=== PATIENT | male | born 1935 | race African-American/Black ===

== ENCOUNTER 2021-09-05 10:57 | Inpatient (IN) ==
[2021-09-05 11:38] LABS: Arterial Base Excess iSTAT -8 MMOL/L (-2.5-2.5); Arterial Bicarbonate iSTAT 19.1 MMOL/L (20-26); Arterial O2 Saturation iSTAT 88 % (95-100); Arterial PCO2 iSTAT 44 MM HG (35-48); Arterial PO2 iSTAT 64 MM HG (80-95); Arterial Total CO2 iSTAT 20 MMO/L (23-27); Arterial pH iSTAT 7.242 (7.35-7.45)
[2021-09-05 11:53] LABS: Basophils % 0.2 % (0.0-0.8); Eosinophils % 0.1 % (0.00-10.9); Hematocrit 48.5 VOL% (42.0-52.0); Immature Granulocytes % 0.8 %; Immature Granulocytes Absolute 0.09 #; Lymphocytes # 0.8 10*3/uL (1.4-4.0); Lymphocytes % 7.4 % (21.2-54.2); Mean Corpuscular HGB Conc 31.1 GM/DL (32-36); Mean Corpuscular Volume 103.6 FL (87-102); Mean Platelet Volume 10.9 FL (9.6-12.0); Monocytes # 1.3 10*3/uL (0.11-0.8); NRBC # 0.02 10*3/uL; Neutrophils % 79.5 % (38.7-73.9); Platelet Count 157 T/CUMM (130-400); Red Blood Count 4.68 MC/CUMM (3.8-5.5); Red Cell Distribution Width 13.4 % (9.3-17.3); White Blood Count 10.8 T/CUMM (4-12)
[2021-09-05 11:55] LABS: Hemoglobin 15.1 GM/DL (14.0-18.0); PT Patient Result 11.2 SECS (10.5-12.0)
[2021-09-05] MEDS ORDERED: cefTRIAXone 2,000 MG in SODIUM CHLORIDE 0.9% 100 ML IV ONE (12:03)
[2021-09-05 12:05] LABS: Albumin 3.6 G/DL (3.4-5.0); Calcium 8.6 MG/DL (8.5-10.1); Potassium 5.4 MMOL/L (3.5-5.1); Total Protein 7.9 G/DL (6.4-8.2)
[2021-09-05] MEDS ORDERED: ONDANSETRON 4 MG/2 ML VIAL IV PRN (12:52)
[2021-09-05] MEDS ORDERED: ALBUTEROL 2.5 MG/3 ML NEB RESP TX PRN (12:52)
[2021-09-05] MEDS ORDERED: SODIUM BICARB INJ 100 MEQ in DEXTROSE 5% 1,000 ML IV SCH (13:30)
[2021-09-05 13:47] LABS: Bacteria,Urine Few /HPF (Few); Hyaline Casts,Urine 8 /LPF (0-3); Squamous Epithelial Cell,Urine Occasional /HPF (0-10)
[2021-09-05 13:48] LABS: Urine Appearance Slightly Cloudy (Clear); Urine Color Dark yellow (Yellow)
[2021-09-05 13:49] LABS: Bilirubin,Urine Moderate mg/dL (Negative); Blood, Urine Moderate mg/dL (Negative); Glucose,Urine (UA) 100 mg/dL (Negative); Ketones,Urine 15 mg/dL (Negative); Nitrite,Urine Negative (Negative); Protein,Urine 100 mg/dL (Negative); Urine Specific Gravity > 1.030 (1.001-1.035)
[2021-09-05] MEDS ORDERED: EPINEPHrine 1 MG/10 ML SYRINGE IV ONE ×3 (13:49→15:14)
[2021-09-05] MEDS ORDERED: SODIUM BICARBONATE 50 MEQ/50 ML SYRINGE IV ONE (13:50)
[2021-09-05] MEDS ORDERED: ENOXAPARIN 30 MG/0.3 ML SYRINGE SUBCUT SCH (14:00)
[2021-09-05] MEDS ORDERED: FAMOTIDINE 20 MG/2 ML VIAL IV SCH (14:00)
[2021-09-05] MEDS ORDERED: fentaNYL INJ 1,250 MCG in SODIUM CHLORIDE 0.9% 225 ML IV PRN (14:09)
[2021-09-05] MEDS ORDERED: MIDAZOLAM 100 MG in SODIUM CHLORIDE 0.9% 80 ML IV PRN (14:09)
[2021-09-05] MEDS ORDERED: MIDAZOLAM 2 MG/2 ML VIAL ONE (14:10)
[2021-09-05] MEDS ORDERED: SODIUM CHLORIDE 0.9% 1,000 ML IV ONE (14:11)
[2021-09-05] MEDS ORDERED: MIDAZOLAM 2 MG/2 ML VIAL IV ONE (14:14)
[2021-09-05] MEDS ORDERED: ETOMIDATE 20 MG/10 ML VIAL IV ONE (14:16)
[2021-09-05] MEDS ORDERED: ROCURONIUM 100 MG/10 ML VIAL IV ONE (14:17)
[2021-09-05] MEDS ORDERED: PHENYLEPHRINE DRIP 40 MG/250 ML PREMIX IV ONE (14:30)
[2021-09-05] MEDS ORDERED: SODIUM BICARBONATE 50 MEQ/50 ML VIAL IV ONE ×4 (14:31→15:10)
[2021-09-05] MEDS ORDERED: CALCIUM CHLORIDE 1,000 MG/10 ML SYRINGE IV ONE ×2 (14:32)
[2021-09-05] MEDS ORDERED: EPINEPHrine 1 MG/10 ML SYRINGE ONE (14:32)
[2021-09-05] MEDS ORDERED: PHENYLEPHRINE DRIP 40 MG/250 ML PREMIX IV PRN (14:36)
[2021-09-05 14:41] VITALS: BP 208/105
[2021-09-05] MEDS ORDERED: EPINEPHrine 1 MG/ML VIAL ONE (14:47)
[2021-09-05 14:49] LABS: ABG Base Excess -6.1 MMOL/L (-2.5-2.5); ABG HCO3 19.5 MMOL/L (20-26); ABG Oxygen Saturation 99.4 % (95-100); ABG PCO2 48.9 MM HG (35-48); ABG TCO2 19.3 MMOL/L (23-27)
[2021-09-05] MEDS ORDERED: NOREPINEPHRINE 16 MG in SODIUM CHLORIDE 0.9% 234 ML IV PRN (14:49)
[2021-09-05] MEDS ORDERED: NOREPINEPHRINE 4 MG/4 ML VIAL IV ONE (14:50)
[2021-09-05] MEDS ORDERED: HYDROCORTISONE 100 MG VIAL IV SCH (15:00)
[2021-09-05] MEDS ORDERED: DIGOXIN 0.5 MG/2 ML AMP IV ONE ×2 (15:06→16:00)
[2021-09-05] MEDS ORDERED: metroNIDAZOLE INJ 500 MG/100 ML PREMIX IV SCH (16:00)
[2021-09-05] MEDS ORDERED: HEPARIN/NACL 0.9% 2 UNITS/ML 1,000 UNIT/500 ML BAG IV ONE (16:18)
[2021-09-05] MEDS ORDERED: KETAMINE 500 MG/10 ML VIAL ONE (16:18)
[2021-09-05] MEDS ORDERED: MIDAZOLAM 10 MG/2 ML VIAL ONE (16:18)
[2021-09-05] MEDS ORDERED: PHENYLEPHRINE INJ 160 MG in SODIUM CHLORIDE 0.9% 234 ML IV PRN (16:18)
[2021-09-05] MEDS ORDERED: PHENYLEPHRINE DRIP 20 MG/250 ML PREMIX IV ONE (16:18)
[2021-09-05] MEDS ORDERED: ROCURONIUM 50 MG/5 ML VIAL IV ONE (16:22)
[2021-09-05] MEDS ORDERED: ESMOLOL 100 MG/10 ML VIAL IV ONE (16:22)
[2021-09-05] MEDS ORDERED: fentaNYL 100 MCG/2 ML VIAL ONE (16:22)
[2021-09-05] MEDS ORDERED: LIDOCAINE 2% 5 ML VIAL ONE (16:22)
[2021-09-05] MEDS ORDERED: ETOMIDATE 40 MG/20 ML VIAL IV ONE (16:24)
[2021-09-05] MEDS ORDERED: LIDOCAINE 1%/EPI INJ 20 ML VIAL ONE (16:36)
[2021-09-05] MEDS ORDERED: BUPIVACAINE MPF 0.25% 10 ML VIAL ONE (16:36)
[2021-09-05 17:10] LABS: CKMB % 0.7 %
[2021-09-05] MEDS ORDERED: CEFEPIME 1,000 MG in SODIUM CHLORIDE 0.9% 100 ML IV SCH (18:00)
[2021-09-06] MEDS: MORPHINE 2 MG/1 ML SYRINGE IV PRN ×2 (02:19→03:24)
== END 2021-09-06 04:26 | disposition expired | DRG 871 ==
LOC: N.ED 10:57 → N.CC 13:33
PROVIDERS: ADMIT Internal Medicine; ATTEND Internal Medicine